=== PATIENT | female | born 1980 | race Caucasian/White ===

== ENCOUNTER 2024-11-18 09:43 | Emergency (ER) | payer SELFPAY ==
[~2024-11-18] VITALS: Ht 172.7 cm; Wt 64.0 kg
[2024-11-18 09:45] VITALS: O2SAT 97
[2024-11-18] MEDS ORDERED: LORAZEPAM 2MG/ML UD SYRINGE ONE (11:07)
[2024-11-18] MEDS: DIPHENHYDRAMINE 50MG/ML VIAL IM ONE (11:12)
[2024-11-18] MEDS: HALOPERIDOL LACTATE 5MG/ML VIAL IM ONE (11:12)
[2024-11-18] MEDS: LORAZEPAM 2MG/ML UD SYRINGE IM SCH (11:13)
[2024-11-18 13:03] LABS: BASOPHILS % 0.6 % (0.0-2.0); EOSINOPHILS % 0.2 % (0.0-5.0); HEMATOCRIT. 35.0 % (36.0-48.0); HEMOGLOBIN. 11.5 g/dL (12.0-16.0); LYMPHOCYTES % 18.0 % (20.0-50.0); MEAN PLATELET VOLUME 8.3 fl (7.4-10.4); MONOCYTES % 12.4 % (2.0-8.0); NEUTROPHILS % 68.8 % (40.0-76.0); PLATELET 279 x1000/uL (130-400); RED BLOOD CELL COUNT 4.32 mill/uL (4.2-5.4); RED CELL DISTRIBUTION WIDTH 13.9 % (11.6-14.6)
[2024-11-18 13:13] LABS: CREATININE 0.7 mg/dL (0.6-1.0); ETHANOL BLOOD < 10 mg/dL (<10); UREA NITROGEN BLOOD 16 mg/dL (9-23)
[2024-11-18 13:23] LABS: HCG SCREEN NEGATIVE
[2024-11-18 18:57] LABS: *AMPHETAMINES SCREEN URINE PRESUMPTIVE POSITIVE (NEGATIVE); *BARBITURATES SCREEN URINE NEGATIVE (NEGATIVE); *BENZODIAZEPINES SCREEN URINE NEGATIVE (NEGATIVE); *COCAINE SCREEN URINE NEGATIVE (NEGATIVE)
[2024-11-18 18:58] LABS: CANNABINOID URINE SCREEN NEGATIVE (NEGATIVE); ECSTASY MDMA SCREEN URINE NEGATIVE (NEGATIVE); METHADONE URINE SCREEN NEGATIVE (NEGATIVE); OPIATES URINE SCREEN NEGATIVE (NEGATIVE); PHENCYCLIDINE URINE SCREEN NEGATIVE (NEGATIVE)
[2024-11-19 10:28] VITALS: BP 125/69; PULSE 82; RESP 12; TEMP 36.9; O2SAT 100
== END 2024-11-19 11:05 | disposition home or self-care (01) ==
LOC: ER 09:43 → EDBD 09:43 → ER 11-19 11:05
DX: R41.82 Altered mental status, unspecified (principal); F23 Brief psychotic disorder; Z59.00 Homelessness unspecified; Z20.822 Contact with and (suspected) exposure to COVID-19
CPT/HCPCS: 80305; 80048; 80307; 80329; 80320; 84703; 85025; 36415; 96372; 99285; 87426; J1200; J1630; J2060; Z7610 ×2; G0480